=== PATIENT | female | born 1990 | race Hispanic/Latino ===

== ENCOUNTER 2020-03-21 02:04 | Emergency (ER) | payer OTHER ==
[~2020-03-21] VITALS: Ht 165.1 cm; Wt 88.9 kg
[2020-03-21 02:30] VITALS: BP 159/103
[2020-03-21] MEDS ORDERED: ATIVAN PO STA (02:34)
[2020-03-21] MEDS ORDERED: ATIVAN ONE (02:38)
--- NOTE | 2020-03-21 02:42 | ER.PDOC ---
General Chief Complaint: Requesting Medical Care Stated Complaint: DIFFICULTY BREATHING Time seen by MD: 02:30 Source: patient Exam Limitations: no limitations History of Present Illness Initial Comments Patient states she consumed a lot of coffee + a red bull in an attempt to stay awake while driving from [place]. Now she feels her heart pounding and feels like she can't catch her breath when she lays down to sleep. She denies CP or any other symptoms. Timing/Duration: 1-3 hours Quality: fast, pounding heart beat Activities at Onset: rest History of: caffeine (several cups of coffee + a red bull) Modifying Factors: lying down (trying to lay down to sleep is when it seems most pronounced) Associated Symptoms: denies symptoms Past Medical History Medical History: no pertinent history LMP (females 10-50): 3 weeks Family History Significant Family History: no pertinent family hx Social History Smoking: cigarettes (sometimes) Constitutional: no symptoms reported EENTM: no symptoms reported Respiratory: shortness of breath Cardiovascular: palpitations Gastrointestinal: no symptoms reported Genitourinary: no symptoms reported Musculoskeletal: no symptoms reported Skin: no symptoms reported Physical Exam General Appearance: No Apparent Distress, Anxious Respiratory: lungs clear, normal breath sounds, no respiratory distress, no accessory muscle use Cardiovascular: Regular Rate, Rhythm (HR in high 90s) Gastrointestinal: Normal Bowel Sounds Extremities: No Pedal Edema, No Calf Tenderness (no evidence of DVT on exam) Neurologic/Psychiatric: Alert, Normal Mood/Affect Skin: Normal Color, Warm/Dry Departure Time of Disposition: 02:41 Disposition: 01 HOME, SELF-CARE Impression: Primary Impression: Caffeine adverse reaction Additional Impression: Palpitations Condition: Stable Referrals: PCP,UNKNOWN (PCP) PRIMARY CARE PROVIDER Additional Instructions: Home to rest. Limit caffeine use in the future. Return to ER if your heart is racing more than 140 beats per minute, if you have chest pain or worsening difficulty breathing or for any other emergent concerns. Duration or Time Spent with Pa: 15 min Problem Qualifiers Primary Impression: Caffeine adverse reaction Encounter type: initial encounter Qualified Codes: T43.615A - Adverse effect of caffeine, initial encounter HESHAM LAO DO Mar 21, 2020 02:42
== END 2020-03-21 02:50 | disposition home or self-care (01) ==
LOC: ER 02:04
DX: R06.02 Shortness of breath (principal); R00.2 Palpitations; T43.615A Adverse effect of caffeine, initial encounter; Y92.89 Other specified places as the place of occurrence of the external cause
CPT/HCPCS: 99283